=== PATIENT | female | born 1955 | race African-American/Black ===

== ENCOUNTER 2018-05-15 19:53 | Emergency (ER) | payer OTHER ==
[~2018-05-15] VITALS: Ht 160 cm; Wt 77.1 kg
[~2018-05-15 19:53] MED LIST: ACETAMINOPHEN-120 ML PO; AMOXICILLIN 50500 M1 PO; BACTRIM DS TAB1 EACH PO; CIPROFLOXACIN500 M1 PO; DIOVAN HCT 80-1 EACH; DIOVAN HCT 80-1 EACH PO; DOXYCYCLINE 10100 MG PO; FLEXERIL PO; FLONASE 0.05%50 MCG NASAL; HYDROCODON-ACE1 EAC7 PO; HYDROCODONE-AP1 EAC6 PO; IBUPROFEN 800800 M1 PO; NORCO 5-325 TA1 EACH PO; OTIC CARE OTIC14 ML OT; PREDNISONE 20 M20 M1 PO
[2018-05-15] MEDS ORDERED: HYDROCHLOROTH12.5 M1 PO (20:05)
[2018-05-15] MEDS ORDERED: COZAAR 50 MG TA50 M2 PO (20:05)
[2018-05-15] MEDS ORDERED: DOXYCYCLINE 10100 MG PO (20:40)
[2018-05-15 20:48] VITALS: BP 121/75
== END 2018-05-15 20:49 | disposition home or self-care (01) ==
LOC: M.ERS 19:53
DX: S70.362A Insect bite (nonvenomous), left thigh, initial encounter (principal); I10 Essential (primary) hypertension; Z88.8 Allergy status to other drugs, medicaments and biological substances; W57.XXXA Bitten or stung by nonvenomous insect and other nonvenomous arthropods, initial encounter; Y93.89 Activity, other specified; Y92.89 Other specified places as the place of occurrence of the external cause; Y99.8 Other external cause status

== ENCOUNTER 2021-05-07 18:54 | Emergency (ER) | payer MEDICARE ==
[~2021-05-07] VITALS: Ht 160 cm; Wt 74.8 kg
[~2021-05-07 18:54] MED LIST changes: +COZAAR 50 MG TA50 M2 PO; +HYDROCHLOROTH12.5 M1 PO
[2021-05-07 19:11] VITALS: BP 150/59
[2021-05-07] MEDS ORDERED: AMOXICILLIN875 MG PO (19:54)
== END 2021-05-07 20:18 | disposition home or self-care (01) ==
LOC: M.ERS 18:54
DX: J32.9 Chronic sinusitis, unspecified (principal); I10 Essential (primary) hypertension; K58.9 Irritable bowel syndrome, unspecified; Z88.8 Allergy status to other drugs, medicaments and biological substances; Z98.890 Other specified postprocedural states

== ENCOUNTER 2021-07-07 12:17 | Inpatient (IN) | payer MEDICARE ==
[~2021-07-07] VITALS: Ht 160 cm; Wt 77.8 kg
[~2021-07-07 12:17] MED LIST changes: +AMOXICILLIN875 MG PO; +COZAAR 50 MG TA50 M1 PO; -COZAAR 50 MG TA50 M2 PO
[2021-07-07 12:27] VITALS: BP 135/74
[2021-07-07 13:06] LABS: ABSOLUTE LYMPHOCYTES 0.9 thou/uL (0.8-5.3); ABSOLUTE MONOCYTES 0.5 thou/uL (0.0-1.2); BASOPHILS 0.1 %; HEMATOCRIT 41.4 % (37.0-47.0); HEMOGLOBIN 13.6 gm/dL (12.0-15.0); LYMPHOCYTES 8.8 %; MCH 28.3 pg (26.0-34.0); MCHC 32.9 g/dL (28.0-37.0); MCV 86.1 fL (80.0-100.0); MONOCYTES 4.9 %; MPV 7.4 fl. (7.2-11.1); NUCLEATED RBCS 0 /100WBC; PLATELET COUNT* 227 thou/uL (150-400); POLYS 86.2 %; RBC 4.81 mil/uL (4.20-5.00); RDW-CV 13.4 % (10.5-14.5); WBC 10.4 thou/uL (4.0-11.0)
[2021-07-07 13:16] LABS: CALCIUM 10.1 mg/dL (8.5-10.1); CREATININE 1.2 mg/dL (0.6-1.3); POTASSIUM 3.9 mmol/L (3.5-5.1)
[2021-07-07 13:27] LABS: ALBUMIN 3.2 g/dL (3.4-5.0); TOTAL BILIRUBIN 0.5 mg/dL (<0.1-1.0); TOTAL PROTEIN 8.3 g/dL (6.4-8.2)
--- NOTE | 2021-07-07 13:41 | EKG ---
[place] [address] ELECTROCARDIOGRAM REPORT Name: CHAD MAGAÑALIND Belia Room: [facility]#: [id number] Admission: 07/07/21 Attend Phys: Discharge: Date of : 55 Date of Service: 07/07/21 1311 Report #: [id number] THIS REPORT FOR: //name// [facility] ED Test Date: 2021-07-07 Test Time: 13:11:09 Pat Name: ROSSY MAGAÑA Department: Room: Gender: F [place]: DSL : 1955 Requested By: Angela David Order Number: [id number] MD: Juan J Ignacio Measurements Intervals [place] Rate: 87 P: 42 RI: 145 QRS: -8 QRSD: 92 T: 10 QT: 355 QTc: 427 Interpretive Statements Sinus rhythm Probable left atrial enlargement Abnormal R-wave progression, early transition Nonspecific T abnormalities, inferior leads Compared to ECG 11/14/2014 11:50:54 T-wave abnormality now present ST (T wave) deviation now present Electronically Signed On 07-07-2021 13:41:32 CDT by Juan J Ignacio [email or web address] <ELECTRONICALLY SIGNED> By: Juan J Ignacio MD, [facility] 07/07/21 1341 1311 1311 Juan J Ignacio MD, [facility] /EPI
[2021-07-07 18:02] VITALS: BP 125/74
[2021-07-07 18:18] VITALS: BP 125/74
[2021-07-07 20:39] VITALS: BP 133/71
[2021-07-08 00:36] VITALS: BP 131/71
[2021-07-08 04:40] VITALS: BP 148/75
[2021-07-08 08:00] VITALS: BP 149/69
[2021-07-08 12:00] VITALS: BP 124/76
[2021-07-08 22:30] VITALS: BP 148/74
[2021-07-09 00:10] VITALS: BP 132/69
[2021-07-09 04:07] LABS: CALCIUM 10.5 mg/dL (8.5-10.1)
[2021-07-09 04:09] LABS: HEMATOCRIT 38.7 % (37.0-47.0); HEMOGLOBIN 12.7 gm/dL (12.0-15.0); MCHC 32.9 g/dL (28.0-37.0); MCV 85.1 fL (80.0-100.0); MPV 7.5 fl. (7.2-11.1); RBC 4.55 mil/uL (4.20-5.00); RDW-CV 13.5 % (10.5-14.5); WBC 13.6 thou/uL (4.0-11.0)
[2021-07-09 04:25] VITALS: BP 140/73
[2021-07-09 12:00] VITALS: BP 149/78
[2021-07-09 16:00] VITALS: BP 154/78
[2021-07-09 22:15] VITALS: BP 140/70
[2021-07-10 00:15] VITALS: BP 135/73
[2021-07-10 04:35] VITALS: BP 135/73; BP 152/78
[2021-07-10 05:35] LABS: INFLUENZA A ANTIGEN Negative (Negative); INFLUENZA B ANTIGEN Negative (Negative)
[2021-07-10 06:35] LABS: BE 3.9 mmol/L (-2 to +3); PCO2 42.2 mmHg (35.0-45.0); PO2 68.9 mmHg (75.0-100.0); pH 7.446 (7.340-7.450)
[2021-07-10 07:30] VITALS: BP 150/74
[2021-07-10 12:00] VITALS: BP 135/67
[2021-07-10 16:14] VITALS: BP 149/74
[2021-07-10 20:00] VITALS: BP 144/75
[2021-07-11] VITALS (7 sets, daily range): BP systolic 145–166; BP diastolic 67–84
[2021-07-11 09:08] LABS: CALCIUM 9.7 mg/dL (8.5-10.1); CREATININE 0.9 mg/dL (0.6-1.3); POTASSIUM 3.7 mmol/L (3.5-5.1)
[2021-07-12] VITALS (16 sets, daily range): BP systolic 83–156; BP diastolic 46–87
[2021-07-12 05:28] LABS: HEMATOCRIT 39.2 % (37.0-47.0); HEMOGLOBIN 12.8 gm/dL (12.0-15.0); MCH 27.9 pg (26.0-34.0); MCHC 32.7 g/dL (28.0-37.0); MCV 85.2 fL (80.0-100.0); NUCLEATED RBCS 0 /100WBC; PLATELET COUNT* 349 thou/uL (150-400); RDW-CV 13.3 % (10.5-14.5); WBC 13.6 thou/uL (4.0-11.0)
[2021-07-12 05:58] LABS: ALBUMIN 2.5 g/dL (3.4-5.0); CALCIUM 9.5 mg/dL (8.5-10.1); MAGNESIUM 2.2 mg/dL (1.8-2.4); POTASSIUM 3.8 mmol/L (3.5-5.1); TOTAL BILIRUBIN 0.5 mg/dL (<0.1-1.0); TOTAL PROTEIN 6.6 g/dL (6.4-8.2)
[2021-07-12 06:14] LABS: ABSOLUTE LYMPHOCYTES 1.1 thou/uL (0.8-5.3); ABSOLUTE MONOCYTES 0.5 thou/uL (0.0-1.2); ANISOCYTOSIS 1+; PLATELET ESTIMATE ADEQUATE; POIKILOCYTOSIS 1+
[2021-07-13] VITALS (51 sets, daily range): BP systolic 82–178; BP diastolic 44–99
[2021-07-13 04:43] LABS: ABSOLUTE LYMPHOCYTES 0.5 thou/uL (0.8-5.3); ABSOLUTE MONOCYTES 0.4 thou/uL (0.0-1.2); ABSOLUTE NEUTROPHILS 16.1 thou/uL (1.6-8.1); BASOPHILS 0.1 %; HEMATOCRIT 38.5 % (37.0-47.0); HEMOGLOBIN 12.6 gm/dL (12.0-15.0); LYMPHOCYTES 3.1 %; MCH 27.9 pg (26.0-34.0); MCHC 32.7 g/dL (28.0-37.0); MCV 85.3 fL (80.0-100.0); MONOCYTES 2.4 %; MPV 7.8 fl. (7.2-11.1); NUCLEATED RBCS 0 /100WBC; PLATELET COUNT* 362 thou/uL (150-400); POLYS 94.4 %; RBC 4.52 mil/uL (4.20-5.00); RDW-CV 13.2 % (10.5-14.5)
[2021-07-13 05:48] LABS: ALBUMIN 2.2 g/dL (3.4-5.0); CREATININE 1.2 mg/dL (0.6-1.3); MAGNESIUM 2.4 mg/dL (1.8-2.4); POTASSIUM 4.3 mmol/L (3.5-5.1); TOTAL BILIRUBIN 0.4 mg/dL (<0.1-1.0); TOTAL PROTEIN 6.7 g/dL (6.4-8.2)
[2021-07-13 09:08] LABS: BE 4.4 mmol/L (-2 to +3); PCO2 45.3 mmHg (35.0-45.0); pH 7.431 (7.340-7.450)
[2021-07-13 09:37] LABS: PO2 48.5 mmHg (75.0-100.0)
[2021-07-13 12:45] LABS: PCO2 46.5 mmHg (35.0-45.0); pH 7.391 (7.340-7.450)
[2021-07-13 12:46] LABS: PO2 55.1 mmHg (75.0-100.0)
[2021-07-13 17:52] LABS: CALCIUM 9.9 mg/dL (8.5-10.1); CREATININE 1.2 mg/dL (0.6-1.3); MAGNESIUM 2.1 mg/dL (1.8-2.4); POTASSIUM 4.3 mmol/L (3.5-5.1)
[2021-07-13 17:54] LABS: BE 4.8 mmol/L (-2 to +3); PCO2 38.3 mmHg (35.0-45.0); pH 7.487 (7.340-7.450)
[2021-07-13 17:58] LABS: PO2 143.2 mmHg (75.0-100.0)
[2021-07-14] VITALS (74 sets, daily range): BP systolic 79–162; BP diastolic 43–74
[2021-07-14 04:53] LABS: ABSOLUTE LYMPHOCYTES 0.4 thou/uL (0.8-5.3); ABSOLUTE MONOCYTES 0.7 thou/uL (0.0-1.2); ABSOLUTE NEUTROPHILS 20.8 thou/uL (1.6-8.1); BASOPHILS 0.2 %; HEMOGLOBIN 12.5 gm/dL (12.0-15.0); MCH 27.8 pg (26.0-34.0); MCHC 32.8 g/dL (28.0-37.0); MCV 84.7 fL (80.0-100.0); MPV 7.6 fl. (7.2-11.1); NUCLEATED RBCS 0 /100WBC; PLATELET COUNT* 412 thou/uL (150-400); POLYS 94.8 %; RBC 4.49 mil/uL (4.20-5.00); RDW-CV 13.4 % (10.5-14.5); WBC 21.9 thou/uL (4.0-11.0)
[2021-07-14 05:05] LABS: CALCIUM 9.7 mg/dL (8.5-10.1); CREATININE 1.3 mg/dL (0.6-1.3); MAGNESIUM 2.2 mg/dL (1.8-2.4); POTASSIUM 3.6 mmol/L (3.5-5.1); TOTAL BILIRUBIN 0.5 mg/dL (<0.1-1.0); TOTAL PROTEIN 6.7 g/dL (6.4-8.2)
[2021-07-14 08:59] LABS: BE 1.1 mmol/L (-2 to +3); PCO2 45.2 mmHg (35.0-45.0); PO2 82.6 mmHg (75.0-100.0); pH 7.386 (7.340-7.450)
--- NOTE | 2021-07-14 14:59 | 2DMMODE ---
[place] [address] 2 D/M-MODE ECHOCARDIOGRAM Name: ROSSY MAGAÑA Room: [address] IN [facility]#: [id number] Admission: 07/07/21 Attend Phys: Loulou Mcmillan, Discharge: Date of : 55 Date of Service: 07/14/21 1459 Report #: [id number] THIS REPORT FOR: cc: Diego Mckinley MD, Anthony MD Biggs, F. Douglas MD [facility] ~ APPROVED REPORT Study performed: 07/14/2021 13:19:58 EXAM: Limited 2D Echocardiogram Patient Location: In-Patient Room #: 001 Status: routine BSA: 1.70 HR: 95 bpm BP: 112/56 mmHg Rhythm: NSR Other Information Technically limited study due to SUBCOSTAL VIEWS ONLY OBTAINABLE VIEW,, patient on ventilator, inability to position patient. Indications Septic Shock Left Ventricle The left ventricle is normal size. Regional wall motion is not well visualized but grossly normal. There is normal left ventricular wall thickness. The left ventricular systolic function is normal. The left ventricular ejection fraction is within the normal range. LVEF is 55-60%. This study is not technically sufficient to allow evaluation of the LV diastolic function. Right Ventricle The right ventricle is normal size. The right ventricular systolic function is normal. Atria The left atrium size is normal. Aortic Valve The aortic valve is normal in structure. [address] [address] 2 D/M-MODE ECHOCARDIOGRAM Name: ROSSY MAGAÑA Room: [address] IN ..#: [id number] Admission: 07/07/21 Attend Phys: Loulou Mcmillan, Discharge: Date of : 55 Date of Service: 07/14/21 1459 Report #: [id number] Mitral Valve The mitral valve is normal in structure. Tricuspid Valve The tricuspid valve is normal in structure. Unable to assess PA pressure. Trace tricuspid regurgitation. Great Vessels The aortic root is normal in size. IVC is normal in size. Pericardium There is no pericardial effusion. <Conclusion> LVEF is 55-60%. This study is not technically sufficient to allow evaluation of the LV diastolic function. There is normal left ventricular wall thickness. The left ventricle is normal size. Regional wall motion is not well visualized but grossly normal. This study is not technically sufficient to allow evaluation of the LV diastolic function. The right ventricle is normal size. The right ventricular systolic function is normal. The left atrium size is normal. The aortic valve is normal in structure. The mitral valve is normal in structure. The tricuspid valve is normal in structure. Unable to assess PA pressure. Trace tricuspid regurgitation. <ELECTRONICALLY SIGNED> By: Jaja Nova MD, [facility] 07/14/21 1459 1459 1459 Jaja Nova MD, [facility] /INF
[2021-07-14 16:28] LABS: URINE BILIRUBIN NEGATIVE (Negative); URINE BLOOD NEGATIVE (Negative); URINE CLARITY CLEAR; URINE COLOR YELLOW; URINE GLUCOSE-RANDOM NEGATIVE (Negative); URINE KETONES NEGATIVE (Negative); URINE LEUKOCYTES-REFLEX NEGATIVE (Negative); URINE NITRITE-REFLEX NEGATIVE (Negative); URINE PROTEIN TRACE (Negative); URINE SPECIFIC GRAVITY 1.025 (1.005-1.030); URINE UROBILINOGEN 0.2 E.U./dl (0.2-1.0)
[2021-07-14 19:57] LABS: PCO2 45.1 mmHg (35.0-45.0); PO2 70.1 mmHg (75.0-100.0); pH 7.356 (7.340-7.450)
[2021-07-15] VITALS (73 sets, daily range): BP systolic 68–263; BP diastolic 31–91
[2021-07-15 05:16] LABS: HEMATOCRIT 34.3 % (37.0-47.0); HEMOGLOBIN 11.2 gm/dL (12.0-15.0); MCH 27.9 pg (26.0-34.0); MCHC 32.7 g/dL (28.0-37.0); MCV 85.3 fL (80.0-100.0); MPV 7.1 fl. (7.2-11.1); NUCLEATED RBCS 0 /100WBC; PLATELET COUNT* 313 thou/uL (150-400); RBC 4.02 mil/uL (4.20-5.00); RDW-CV 13.6 % (10.5-14.5); WBC 20.4 thou/uL (4.0-11.0)
[2021-07-15 05:34] LABS: ALBUMIN 3.1 g/dL (3.4-5.0); CALCIUM 9.2 mg/dL (8.5-10.1); CREATININE 1.1 mg/dL (0.6-1.3); MAGNESIUM 2.3 mg/dL (1.8-2.4); POTASSIUM 3.8 mmol/L (3.5-5.1); TOTAL BILIRUBIN 0.4 mg/dL (<0.1-1.0); TOTAL PROTEIN 6.2 g/dL (6.4-8.2)
[2021-07-15 06:55] LABS: ABSOLUTE LYMPHOCYTES 0.6 thou/uL (0.8-5.3); ABSOLUTE MONOCYTES 0.4 thou/uL (0.0-1.2); ABSOLUTE NEUTROPHILS 19.4 thou/uL (1.6-8.1); METAMYELOCYTES 1 %; PLATELET ESTIMATE ADEQUATE
[2021-07-15 09:35] LABS: BE 0 mmol/L (-2 to +3); pH 7.337 (7.340-7.450)
[2021-07-15 09:41] LABS: PCO2 50.5 mmHg (35.0-45.0); PO2 52.1 mmHg (75.0-100.0)
[2021-07-15 11:34] LABS: BE 3.4 mmol/L (-2 to +3); PCO2 45.5 mmHg (35.0-45.0); PO2 89.6 mmHg (75.0-100.0); pH 7.415 (7.340-7.450)
[2021-07-15 17:20] LABS: BE 2.3 mmol/L (-2 to +3); pH 7.362 (7.340-7.450)
[2021-07-15 17:24] LABS: PCO2 51.4 mmHg (35.0-45.0); PO2 131.2 mmHg (75.0-100.0)
[2021-07-15 17:53] LABS: CALCIUM 9.1 mg/dL (8.5-10.1); CREATININE 1.3 mg/dL (0.6-1.3); MAGNESIUM 2.1 mg/dL (1.8-2.4); POTASSIUM 3.8 mmol/L (3.5-5.1)
[2021-07-16] VITALS (83 sets, daily range): BP systolic 85–214; BP diastolic 45–81
[2021-07-16 12:28] LABS: BE 1.2 mmol/L (-2 to +3); PO2 74.4 mmHg (75.0-100.0)
[2021-07-16 12:37] LABS: ABSOLUTE LYMPHOCYTES 0.5 thou/uL (0.8-5.3); ABSOLUTE MONOCYTES 0.6 thou/uL (0.0-1.2); ABSOLUTE NEUTROPHILS 24.8 thou/uL (1.6-8.1); BASOPHILS 0.1 %; HEMATOCRIT 34.4 % (37.0-47.0); LYMPHOCYTES 1.8 %; MCH 27.7 pg (26.0-34.0); MCHC 31.8 g/dL (28.0-37.0); MCV 86.9 fL (80.0-100.0); MONOCYTES 2.3 %; MPV 7.4 fl. (7.2-11.1); NUCLEATED RBCS 0 /100WBC; POLYS 95.8 %; RBC 3.96 mil/uL (4.20-5.00); RDW-CV 13.3 % (10.5-14.5); WBC 25.9 thou/uL (4.0-11.0)
[2021-07-16 12:37] LABS: PCO2 61.6 mmHg (35.0-45.0)
[2021-07-16 12:39] LABS: PLATELET COUNT* 207 thou/uL (150-400)
[2021-07-16 12:59] LABS: ALBUMIN 3.1 g/dL (3.4-5.0); CALCIUM 9.5 mg/dL (8.5-10.1); CREATININE 1.1 mg/dL (0.6-1.3); POTASSIUM 4.1 mmol/L (3.5-5.1); TOTAL BILIRUBIN 0.2 mg/dL (<0.1-1.0); TOTAL PROTEIN 5.5 g/dL (6.4-8.2)
[2021-07-16 18:37] LABS: BE 4.8 mmol/L (-2 to +3); PO2 89.5 mmHg (75.0-100.0); pH 7.379 (7.340-7.450)
[2021-07-17] VITALS (76 sets, daily range): BP systolic 100–185; BP diastolic 32–51
[2021-07-17 06:51] LABS: ABSOLUTE LYMPHOCYTES 0.4 thou/uL (0.8-5.3); ABSOLUTE MONOCYTES 0.8 thou/uL (0.0-1.2); ABSOLUTE NEUTROPHILS 22.6 thou/uL (1.6-8.1); BASOPHILS 0.1 %; HEMATOCRIT 31.8 % (37.0-47.0); HEMOGLOBIN 10.3 gm/dL (12.0-15.0); LYMPHOCYTES 1.8 %; MCH 27.8 pg (26.0-34.0); MCHC 32.5 g/dL (28.0-37.0); MCV 85.8 fL (80.0-100.0); MONOCYTES 3.3 %; MPV 7.4 fl. (7.2-11.1); NUCLEATED RBCS 0 /100WBC; PLATELET COUNT* 150 thou/uL (150-400); POLYS 94.8 %; RBC 3.71 mil/uL (4.20-5.00); RDW-CV 13.7 % (10.5-14.5); WBC 23.9 thou/uL (4.0-11.0)
[2021-07-17 07:24] LABS: ALBUMIN 2.7 g/dL (3.4-5.0); CALCIUM 9.7 mg/dL (8.5-10.1); CREATININE 1.1 mg/dL (0.6-1.3); MAGNESIUM 2.5 mg/dL (1.8-2.4); POTASSIUM 4.1 mmol/L (3.5-5.1); TOTAL BILIRUBIN 0.3 mg/dL (<0.1-1.0); TOTAL PROTEIN 4.9 g/dL (6.4-8.2)
[2021-07-17 09:11] LABS: BE 3.9 mmol/L (-2 to +3); PO2 78.1 mmHg (75.0-100.0); pH 7.351 (7.340-7.450)
[2021-07-17 09:19] LABS: PCO2 56.5 mmHg (35.0-45.0)
[2021-07-17 16:33] LABS: CALCIUM 9.5 mg/dL (8.5-10.1); CREATININE 1.3 mg/dL (0.6-1.3); POTASSIUM 4.3 mmol/L (3.5-5.1)
[2021-07-18] VITALS (24 sets, daily range): BP systolic 100–185; BP diastolic 39–68
[2021-07-18 05:38] LABS: HEMOGLOBIN 10.1 gm/dL (12.0-15.0); MCH 28.2 pg (26.0-34.0); MCHC 32.7 g/dL (28.0-37.0); MCV 86.3 fL (80.0-100.0); MPV 8.3 fl. (7.2-11.1); NUCLEATED RBCS 0 /100WBC; PLATELET COUNT* 125 thou/uL (150-400); RDW-CV 13.7 % (10.5-14.5); WBC 22.1 thou/uL (4.0-11.0)
[2021-07-18 05:50] LABS: CALCIUM 10.2 mg/dL (8.5-10.1); CREATININE 1.2 mg/dL (0.6-1.3); MAGNESIUM 2.6 mg/dL (1.8-2.4); POTASSIUM 4.7 mmol/L (3.5-5.1); TOTAL BILIRUBIN 0.3 mg/dL (<0.1-1.0); TOTAL PROTEIN 4.9 g/dL (6.4-8.2)
[2021-07-18 06:20] LABS: ABSOLUTE LYMPHOCYTES 1.3 thou/uL (0.8-5.3); ABSOLUTE MONOCYTES 0.4 thou/uL (0.0-1.2); ABSOLUTE NEUTROPHILS 20.3 thou/uL (1.6-8.1); ANISOCYTOSIS 1+; PLATELET ESTIMATE DECREASED; POIKILOCYTOSIS 1+
[2021-07-18 08:58] LABS: BE 3.2 mmol/L (-2 to +3); PCO2 44.5 mmHg (35.0-45.0); PO2 107.2 mmHg (75.0-100.0); pH 7.419 (7.340-7.450)
[2021-07-18 20:17] LABS: BE 2.6 mmol/L (-2 to +3); PO2 92.3 mmHg (75.0-100.0)
[2021-07-18 20:31] LABS: PCO2 73.9 mmHg (35.0-45.0); pH 7.249 (7.340-7.450)
[2021-07-19] VITALS (47 sets, daily range): BP systolic 89–163; BP diastolic 42–62
[2021-07-19 03:59] LABS: ABSOLUTE BASOPHILS 0.1 thou/uL (0.0-0.2); ABSOLUTE LYMPHOCYTES 0.4 thou/uL (0.8-5.3); ABSOLUTE MONOCYTES 0.7 thou/uL (0.0-1.2); ABSOLUTE NEUTROPHILS 26.2 thou/uL (1.6-8.1); BASOPHILS 0.2 %; HEMATOCRIT 31.9 % (37.0-47.0); HEMOGLOBIN 10.3 gm/dL (12.0-15.0); LYMPHOCYTES 1.5 %; MCH 28.1 pg (26.0-34.0); MCHC 32.3 g/dL (28.0-37.0); MCV 86.9 fL (80.0-100.0); MONOCYTES 2.7 %; MPV 8.1 fl. (7.2-11.1); NUCLEATED RBCS 0 /100WBC; PLATELET COUNT* 99 thou/uL (150-400); POLYS 95.6 %; RBC 3.68 mil/uL (4.20-5.00); RDW-CV 14.1 % (10.5-14.5); WBC 27.4 thou/uL (4.0-11.0)
[2021-07-19 04:38] LABS: ALBUMIN 2.8 g/dL (3.4-5.0); CALCIUM 9.9 mg/dL (8.5-10.1); CREATININE 1.2 mg/dL (0.6-1.3); MAGNESIUM 2.8 mg/dL (1.8-2.4); POTASSIUM 4.7 mmol/L (3.5-5.1); TOTAL BILIRUBIN 0.2 mg/dL (<0.1-1.0); TOTAL PROTEIN 5.1 g/dL (6.4-8.2)
[2021-07-19 07:38] LABS: BE 2.7 mmol/L (-2 to +3); PO2 110.6 mmHg (75.0-100.0); pH 7.343 (7.340-7.450)
[2021-07-19 07:39] LABS: PCO2 55.3 mmHg (35.0-45.0)
[2021-07-19 15:04] LABS: BE 4.7 mmol/L (-2 to +3); PCO2 48.5 mmHg (35.0-45.0); PO2 73.1 mmHg (75.0-100.0)
[2021-07-19 15:30] LABS: ABSOLUTE BASOPHILS 0.1 thou/uL (0.0-0.2); ABSOLUTE LYMPHOCYTES 0.3 thou/uL (0.8-5.3); ABSOLUTE MONOCYTES 0.5 thou/uL (0.0-1.2); ABSOLUTE NEUTROPHILS 18.2 thou/uL (1.6-8.1); BASOPHILS 0.3 %; HEMATOCRIT 28.7 % (37.0-47.0); HEMOGLOBIN 9.3 gm/dL (12.0-15.0); LYMPHOCYTES 1.7 %; MCH 27.9 pg (26.0-34.0); MCHC 32.4 g/dL (28.0-37.0); MCV 86.2 fL (80.0-100.0); MONOCYTES 2.6 %; NUCLEATED RBCS 0 /100WBC; PLATELET COUNT* 83 thou/uL (150-400); POLYS 95.4 %; RBC 3.33 mil/uL (4.20-5.00); RDW-CV 13.7 % (10.5-14.5); WBC 19.1 thou/uL (4.0-11.0)
[2021-07-19 15:43] LABS: CALCIUM 9.8 mg/dL (8.5-10.1); CREATININE 1.1 mg/dL (0.6-1.3); MAGNESIUM 2.8 mg/dL (1.8-2.4); POTASSIUM 5.2 mmol/L (3.5-5.1)
[2021-07-19 15:51] LABS: APTT 23.8 Seconds (25.0-31.3); INR 1.2; PROTIME 13.1 Seconds (9.20-11.50)
[2021-07-20] VITALS (48 sets, daily range): BP systolic 101–198; BP diastolic 45–62
[2021-07-20 03:24] LABS: ABSOLUTE LYMPHOCYTES 0.3 thou/uL (0.8-5.3); ABSOLUTE MONOCYTES 0.6 thou/uL (0.0-1.2); ABSOLUTE NEUTROPHILS 22.7 thou/uL (1.6-8.1); BASOPHILS 0.1 %; HEMATOCRIT 29.3 % (37.0-47.0); HEMOGLOBIN 9.4 gm/dL (12.0-15.0); LYMPHOCYTES 1.2 %; MCH 27.9 pg (26.0-34.0); MCHC 32.1 g/dL (28.0-37.0); MCV 86.9 fL (80.0-100.0); MONOCYTES 2.5 %; MPV 8.4 fl. (7.2-11.1); NUCLEATED RBCS 0 /100WBC; PLATELET COUNT* 78 thou/uL (150-400); POLYS 96.2 %; RBC 3.37 mil/uL (4.20-5.00); RDW-CV 14.1 % (10.5-14.5); WBC 23.6 thou/uL (4.0-11.0)
[2021-07-20 03:37] LABS: ALBUMIN 2.5 g/dL (3.4-5.0); CALCIUM 9.9 mg/dL (8.5-10.1); MAGNESIUM 2.8 mg/dL (1.8-2.4); POTASSIUM 5.2 mmol/L (3.5-5.1); TOTAL BILIRUBIN 0.3 mg/dL (<0.1-1.0); TOTAL PROTEIN 4.6 g/dL (6.4-8.2)
[2021-07-20 08:55] LABS: BE 3.1 mmol/L (-2 to +3); PO2 75.4 mmHg (75.0-100.0); pH 7.322 (7.340-7.450)
[2021-07-20 09:01] LABS: PCO2 59.9 mmHg (35.0-45.0)
[2021-07-20 17:29] LABS: BE 6.7 mmol/L (-2 to +3); PO2 94.6 mmHg (75.0-100.0); pH 7.358 (7.340-7.450)
[2021-07-20 17:33] LABS: PCO2 60.9 mmHg (35.0-45.0)
[2021-07-20 18:33] LABS: CREATININE 1.2 mg/dL (0.6-1.3); MAGNESIUM 2.6 mg/dL (1.8-2.4); POTASSIUM 4.9 mmol/L (3.5-5.1)
[2021-07-21] VITALS (45 sets, daily range): BP systolic 115–180; BP diastolic 42–64
[2021-07-21 06:10] LABS: ABSOLUTE LYMPHOCYTES 0.3 thou/uL (0.8-5.3); ABSOLUTE MONOCYTES 0.6 thou/uL (0.0-1.2); ABSOLUTE NEUTROPHILS 23.5 thou/uL (1.6-8.1); BASOPHILS 0.1 %; HEMATOCRIT 28.9 % (37.0-47.0); HEMOGLOBIN 9.3 gm/dL (12.0-15.0); LYMPHOCYTES 1.4 %; MCH 28.1 pg (26.0-34.0); MCHC 32.1 g/dL (28.0-37.0); MCV 87.3 fL (80.0-100.0); MONOCYTES 2.5 %; NUCLEATED RBCS 0 /100WBC; PLATELET COUNT* 73 thou/uL (150-400); RBC 3.31 mil/uL (4.20-5.00); RDW-CV 14.2 % (10.5-14.5); WBC 24.5 thou/uL (4.0-11.0)
[2021-07-21 06:29] LABS: ALBUMIN 3.1 g/dL (3.4-5.0); CALCIUM 10.1 mg/dL (8.5-10.1); CREATININE 0.9 mg/dL (0.6-1.3); MAGNESIUM 2.7 mg/dL (1.8-2.4); POTASSIUM 5.1 mmol/L (3.5-5.1); TOTAL BILIRUBIN 0.4 mg/dL (<0.1-1.0); TOTAL PROTEIN 5.2 g/dL (6.4-8.2)
[2021-07-21 08:43] LABS: BE 4.1 mmol/L (-2 to +3); PO2 65.7 mmHg (75.0-100.0)
[2021-07-21 08:45] LABS: PCO2 67.2 mmHg (35.0-45.0); pH 7.294 (7.340-7.450)
[2021-07-21 10:38] LABS: BE 4.2 mmol/L (-2 to +3); PO2 68.8 mmHg (75.0-100.0); pH 7.383 (7.340-7.450)
[2021-07-21 10:40] LABS: PCO2 51.7 mmHg (35.0-45.0)
[2021-07-21 15:17] LABS: PCO2 48.8 mmHg (35.0-45.0); PO2 79.2 mmHg (75.0-100.0); pH 7.411 (7.340-7.450)
--- NOTE | 2021-07-21 15:51 | 2DMMODE ---
[place] [address] 2 D/M-MODE ECHOCARDIOGRAM Name: ROSSY MAGAÑA Belia Room: [address] IN [facility]#: [id number] Admission: 07/07/21 Attend Phys: Loulou Mcmillan, Discharge: Date of : 55 Date of Service: 07/21/21 1550 Report #: [id number] THIS REPORT FOR: cc: Diego Mckinley MD, Anthony MD [place], Michael J. MD [facility] ~ APPROVED REPORT Study performed: 07/21/2021 14:27:55 EXAM: Limited 2D Echocardiogram Patient Location: In-Patient Room #: 001 Status: routine BSA: 1.76 HR: 75 bpm BP: 144/50 mmHg Rhythm: NSR Other Information Study Quality: Good Indications Dyspnea COVID, REASSESS PA SYSTOLIC Tricuspid Valve RAP Estimate: 5.00 mmHg TR Peak Gr.: 43.24 mmHg RVSP: 48.00 mmHg PA Pressure: 48.00 mmHg Left Ventricle The left ventricle is normal size. There is normal LV segmental wall motion. There is normal left ventricular wall thickness. The left ventricular systolic function is normal. LVEF is 65-70%. This study is not technically sufficient to allow evaluation of the LV diastolic function. Right Ventricle Right ventricle is moderately dilated. The right ventricular systolic function is normal. Atria The left atrium size is normal. Right atrium [place] [address] 2 D/M-MODE ECHOCARDIOGRAM Name: ROSSY MAGAÑA Room: [address] IN [facility].#: [id number] Admission: 07/07/21 Attend Phys: Loulou Mcmillan, Discharge: Date of : 55 Date of Service: 07/21/21 1550 Report #: [id number] Aortic Valve The aortic valve is normal in structure. No aortic regurgitation is present. Mitral Valve The mitral valve is normal in structure. There is no mitral valve regurgitation noted. Tricuspid Valve The tricuspid valve is normal in structure. Mild tricuspid regurgitation. Moderate pulmonary hypertension. The RVSP is 55-60 mmHg. Pulmonic Valve The pulmonary valve is normal in structure. Trace pulmonic regurgitation. Great Vessels The aortic root is normal in size. IVC is dilated and collapses <50% with inspiration. Pericardium There is no pericardial effusion. <Conclusion> The left ventricle is normal size. There is normal left ventricular wall thickness. The left ventricular systolic function is normal. LVEF is 65-70%. Right ventricle is moderately dilated. Right atrium is moderately dilated. Mild tricuspid regurgitation. Moderate pulmonary hypertension. The RVSP is 55-60 mmHg. IVC is dilated and collapses <50% with inspiration. <ELECTRONICALLY SIGNED> By: Ferny Dinero MD, FACC 07/21/21 1550 1550 1550 Ferny Dinero MD, FAC /INF
[2021-07-22] VITALS (45 sets, daily range): BP systolic 91–206; BP diastolic 40–69
[2021-07-22 05:38] LABS: HEMOGLOBIN 8.8 gm/dL (12.0-15.0); MCH 28.2 pg (26.0-34.0); MCHC 32.4 g/dL (28.0-37.0); NUCLEATED RBCS 0 /100WBC; PLATELET COUNT* 73 thou/uL (150-400); RBC 3.11 mil/uL (4.20-5.00); RDW-CV 13.8 % (10.5-14.5); WBC 22.8 thou/uL (4.0-11.0)
[2021-07-22 05:54] LABS: CALCIUM 10.2 mg/dL (8.5-10.1); CREATININE 0.8 mg/dL (0.6-1.3); MAGNESIUM 2.4 mg/dL (1.8-2.4); POTASSIUM 5.3 mmol/L (3.5-5.1); TOTAL BILIRUBIN 0.4 mg/dL (<0.1-1.0)
[2021-07-22 06:09] LABS: PHOSPHORUS* 2.6 mg/dL (2.5-4.9)
[2021-07-22 06:17] LABS: ABSOLUTE LYMPHOCYTES 0.5 thou/uL (0.8-5.3); ABSOLUTE MONOCYTES 0.2 thou/uL (0.0-1.2); ABSOLUTE NEUTROPHILS 22.1 thou/uL (1.6-8.1); PLATELET ESTIMATE DECREASED
[2021-07-22 06:18] LABS: ANISOCYTOSIS 1+; POIKILOCYTOSIS 1+
[2021-07-22 07:41] LABS: BE 7.8 mmol/L (-2 to +3); PCO2 48.3 mmHg (35.0-45.0); PO2 62.7 mmHg (75.0-100.0)
[2021-07-22 14:33] LABS: BE 6.8 mmol/L (-2 to +3); PO2 68.5 mmHg (75.0-100.0)
[2021-07-22 14:38] LABS: PCO2 83.3 mmHg (35.0-45.0); pH 7.256 (7.340-7.450)
[2021-07-22 15:50] LABS: ANION GAP < 0 mmol/L (7-16); BUN 53 mg/dL (7-18); CALCIUM 9.8 mg/dL (8.5-10.1); CHLORIDE 104 mmol/L (98-107); CO2 36 mmol/L (21-32); CREATININE 0.8 mg/dL (0.6-1.3); GLUCOSE 155 mg/dL (70-99); MAGNESIUM 2.4 mg/dL (1.8-2.4); POTASSIUM 5.5 mmol/L (3.5-5.1); SODIUM 139 mmol/L (136-145)
[2021-07-22 20:26] LABS: BE 6.9 mmol/L (-2 to +3); PO2 67.8 mmHg (75.0-100.0); pH 7.351 (7.340-7.450)
[2021-07-22 20:30] LABS: PCO2 62.9 mmHg (35.0-45.0)
[2021-07-23] VITALS (48 sets, daily range): BP systolic 102–186; BP diastolic 37–65
[2021-07-23 05:36] LABS: ABSOLUTE LYMPHOCYTES 0.8 thou/uL (0.8-5.3); ABSOLUTE MONOCYTES 1.2 thou/uL (0.0-1.2); BASOPHILS 0.1 %; EOSINOPHILS 0.1 %; HEMATOCRIT 27.7 % (37.0-47.0); HEMOGLOBIN 9.1 gm/dL (12.0-15.0); LYMPHOCYTES 3.5 %; MCH 28.2 pg (26.0-34.0); MCHC 32.7 g/dL (28.0-37.0); MCV 86.1 fL (80.0-100.0); MONOCYTES 5.1 %; MPV 9.1 fl. (7.2-11.1); NUCLEATED RBCS 0 /100WBC; PLATELET COUNT* 99 thou/uL (150-400); POLYS 91.2 %; RBC 3.22 mil/uL (4.20-5.00); RDW-CV 13.7 % (10.5-14.5)
[2021-07-23 06:07] LABS: ALBUMIN 3.3 g/dL (3.4-5.0); CALCIUM 10.1 mg/dL (8.5-10.1); CREATININE 0.9 mg/dL (0.6-1.3); MAGNESIUM 2.3 mg/dL (1.8-2.4); TOTAL BILIRUBIN 0.4 mg/dL (<0.1-1.0); TOTAL PROTEIN 5.4 g/dL (6.4-8.2)
[2021-07-23 06:09] LABS: POTASSIUM 4.5 mmol/L (3.5-5.1)
[2021-07-23 06:14] LABS: PHOSPHORUS* 3.3 mg/dL (2.5-4.9)
[2021-07-23 09:16] LABS: BE 12.7 mmol/L (-2 to +3); PCO2 44.7 mmHg (35.0-45.0); pH 7.532 (7.340-7.450)
[2021-07-23 09:22] LABS: PO2 56.9 mmHg (75.0-100.0)
[2021-07-24] VITALS (85 sets, daily range): BP systolic 68–191; BP diastolic 35–75
[2021-07-24 11:47] LABS: BE 9.1 mmol/L (-2 to +3); PO2 83.6 mmHg (75.0-100.0); pH 7.352 (7.340-7.450)
[2021-07-24 11:51] LABS: PCO2 67.2 mmHg (35.0-45.0)
[2021-07-25] VITALS (66 sets, daily range): BP systolic 100–155; BP diastolic 43–69
[2021-07-25 12:53] LABS: ABSOLUTE BASOPHILS 0.1 thou/uL (0.0-0.2); ABSOLUTE LYMPHOCYTES 0.5 thou/uL (0.8-5.3); ABSOLUTE MONOCYTES 0.9 thou/uL (0.0-1.2); ABSOLUTE NEUTROPHILS 22.9 thou/uL (1.6-8.1); BASOPHILS 0.2 %; HEMATOCRIT 28.2 % (37.0-47.0); HEMOGLOBIN 9.1 gm/dL (12.0-15.0); LYMPHOCYTES 2.1 %; MCH 28.5 pg (26.0-34.0); MCHC 32.4 g/dL (28.0-37.0); MCV 87.8 fL (80.0-100.0); MONOCYTES 3.6 %; MPV 8.6 fl. (7.2-11.1); NUCLEATED RBCS 0 /100WBC; PLATELET COUNT* 111 thou/uL (150-400); POLYS 94.1 %; RBC 3.21 mil/uL (4.20-5.00); RDW-CV 14.3 % (10.5-14.5); WBC 24.3 thou/uL (4.0-11.0)
[2021-07-25 13:14] LABS: ALBUMIN 2.7 g/dL (3.4-5.0); CALCIUM 10.3 mg/dL (8.5-10.1); CREATININE 0.8 mg/dL (0.6-1.3); MAGNESIUM 2.2 mg/dL (1.8-2.4); POTASSIUM 4.1 mmol/L (3.5-5.1); TOTAL BILIRUBIN 0.4 mg/dL (<0.1-1.0); TOTAL PROTEIN 5.2 g/dL (6.4-8.2)
[2021-07-25 14:27] LABS: BE 10.7 mmol/L (-2 to +3); PO2 76.1 mmHg (75.0-100.0); pH 7.458 (7.340-7.450)
[2021-07-26] VITALS (38 sets, daily range): BP systolic 80–167; BP diastolic 36–63
[2021-07-26 05:11] LABS: HEMATOCRIT 27.7 % (37.0-47.0); HEMOGLOBIN 9.1 gm/dL (12.0-15.0); MCH 28.6 pg (26.0-34.0); MCHC 32.8 g/dL (28.0-37.0); MCV 87.3 fL (80.0-100.0); NUCLEATED RBCS 0 /100WBC; PLATELET COUNT* 115 thou/uL (150-400); RBC 3.18 mil/uL (4.20-5.00); WBC 20.7 thou/uL (4.0-11.0)
[2021-07-26 05:26] LABS: ALBUMIN 2.5 g/dL (3.4-5.0); CALCIUM 10.2 mg/dL (8.5-10.1); CREATININE 0.7 mg/dL (0.6-1.3); MAGNESIUM 2.3 mg/dL (1.8-2.4); POTASSIUM 4.4 mmol/L (3.5-5.1); TOTAL BILIRUBIN 0.4 mg/dL (<0.1-1.0)
[2021-07-26 07:00] LABS: ABSOLUTE EOSINOPHILS 0.2 thou/uL (0.0-0.7); ABSOLUTE LYMPHOCYTES 0.8 thou/uL (0.8-5.3); ABSOLUTE MONOCYTES 0.6 thou/uL (0.0-1.2); PLATELET ESTIMATE DECREASED
[2021-07-26 07:01] LABS: ANISOCYTOSIS 1+; POIKILOCYTOSIS 1+
[2021-07-26 08:31] LABS: BE 11.8 mmol/L (-2 to +3); PCO2 44.1 mmHg (35.0-45.0); PO2 60.5 mmHg (75.0-100.0); pH 7.527 (7.340-7.450)
[2021-07-26 15:36] LABS: BE 9.2 mmol/L (-2 to +3); PO2 69.1 mmHg (75.0-100.0); pH 7.412 (7.340-7.450)
[2021-07-26 15:39] LABS: PCO2 56.6 mmHg (35.0-45.0)
[2021-07-26 18:37] LABS: BE 6.5 mmol/L (-2 to +3); PO2 96.4 mmHg (75.0-100.0)
[2021-07-26 18:45] LABS: PCO2 71.7 mmHg (35.0-45.0)
[2021-07-27] VITALS (46 sets, daily range): BP systolic 100–188; BP diastolic 37–62
[2021-07-27 04:36] LABS: ALBUMIN 3.5 g/dL (3.4-5.0); ALKALINE PHOSPHATASE 105 U/L (46-116); ANION GAP < 0 mmol/L (7-16); BUN 66 mg/dL (7-18); CALCIUM 10.3 mg/dL (8.5-10.1); CHLORIDE 101 mmol/L (98-107); CO2 39 mmol/L (21-32); CREATININE 0.9 mg/dL (0.6-1.3); GLUCOSE 121 mg/dL (70-99); MAGNESIUM 2.5 mg/dL (1.8-2.4); POTASSIUM 4.4 mmol/L (3.5-5.1); SGOT 108 U/L (15-37); SGPT 72 U/L (30-65); SODIUM 139 mmol/L (136-145); TOTAL BILIRUBIN 0.5 mg/dL (<0.1-1.0); TOTAL PROTEIN 5.7 g/dL (6.4-8.2)
[2021-07-27 04:43] LABS: ABSOLUTE LYMPHOCYTES 0.3 thou/uL (0.8-5.3); ABSOLUTE MONOCYTES 0.7 thou/uL (0.0-1.2); BASOPHILS 0.1 %; HEMATOCRIT 24.5 % (37.0-47.0); HEMOGLOBIN 7.8 gm/dL (12.0-15.0); LYMPHOCYTES 1.5 %; MCV 90.5 fL (80.0-100.0); MONOCYTES 3.2 %; MPV 9.2 fl. (7.2-11.1); NUCLEATED RBCS 0 /100WBC; PLATELET COUNT* 102 thou/uL (150-400); POLYS 95.2 %; RBC 2.71 mil/uL (4.20-5.00); RDW-CV 14.5 % (10.5-14.5); WBC 21.1 thou/uL (4.0-11.0)
[2021-07-27 08:47] LABS: PO2 87.7 mmHg (75.0-100.0); pH 7.302 (7.340-7.450)
[2021-07-27 08:52] LABS: PCO2 74.1 mmHg (35.0-45.0)
[2021-07-27 11:49] LABS: ABSOLUTE BASOPHILS 0.1 thou/uL (0.0-0.2); ABSOLUTE LYMPHOCYTES 0.3 thou/uL (0.8-5.3); ABSOLUTE MONOCYTES 0.6 thou/uL (0.0-1.2); ABSOLUTE NEUTROPHILS 18.7 thou/uL (1.6-8.1); BASOPHILS 0.3 %; HEMATOCRIT 23.5 % (37.0-47.0); HEMOGLOBIN 7.5 gm/dL (12.0-15.0); LYMPHOCYTES 1.4 %; MCH 28.6 pg (26.0-34.0); MCHC 31.8 g/dL (28.0-37.0); MCV 89.9 fL (80.0-100.0); MONOCYTES 3.1 %; MPV 8.8 fl. (7.2-11.1); NUCLEATED RBCS 0 /100WBC; PLATELET COUNT* 96 thou/uL (150-400); POLYS 95.2 %; RBC 2.61 mil/uL (4.20-5.00); RDW-CV 14.5 % (10.5-14.5); WBC 19.6 thou/uL (4.0-11.0)
[2021-07-27 12:01] LABS: APTT 25.3 Seconds (25.0-31.3); PROTIME 10.9 Seconds (9.20-11.50)
[2021-07-27 12:13] LABS: CALCIUM 10.2 mg/dL (8.5-10.1); CREATININE 0.9 mg/dL (0.6-1.3); MAGNESIUM 2.4 mg/dL (1.8-2.4); PHOSPHORUS* 5.5 mg/dL (2.5-4.9); POTASSIUM 4.4 mmol/L (3.5-5.1)
[2021-07-27 12:39] LABS: BE 10.2 mmol/L (-2 to +3); PO2 70.9 mmHg (75.0-100.0)
[2021-07-27 12:41] LABS: PCO2 71.2 mmHg (35.0-45.0)
[2021-07-27 18:24] LABS: ABSOLUTE BASOPHILS 0.1 thou/uL (0.0-0.2); ABSOLUTE LYMPHOCYTES 0.3 thou/uL (0.8-5.3); ABSOLUTE MONOCYTES 0.6 thou/uL (0.0-1.2); ABSOLUTE NEUTROPHILS 17.3 thou/uL (1.6-8.1); BASOPHILS 0.4 %; HEMATOCRIT 22.6 % (37.0-47.0); HEMOGLOBIN 7.2 gm/dL (12.0-15.0); LYMPHOCYTES 1.6 %; MCH 28.6 pg (26.0-34.0); MCV 89.2 fL (80.0-100.0); MONOCYTES 3.1 %; MPV 8.9 fl. (7.2-11.1); NUCLEATED RBCS 0 /100WBC; PLATELET COUNT* 98 thou/uL (150-400); POLYS 94.9 %; RBC 2.53 mil/uL (4.20-5.00); RDW-CV 14.4 % (10.5-14.5); WBC 18.3 thou/uL (4.0-11.0)
[2021-07-27 18:29] LABS: CALCIUM 10.1 mg/dL (8.5-10.1); CREATININE 0.8 mg/dL (0.6-1.3); POTASSIUM 4.2 mmol/L (3.5-5.1)
[2021-07-28] VITALS (69 sets, daily range): BP systolic 92–260; BP diastolic 40–78
[2021-07-28 04:50] LABS: ABSOLUTE LYMPHOCYTES 0.3 thou/uL (0.8-5.3); ABSOLUTE MONOCYTES 0.5 thou/uL (0.0-1.2); ABSOLUTE NEUTROPHILS 18.1 thou/uL (1.6-8.1); BASOPHILS 0.1 %; HEMATOCRIT 23.1 % (37.0-47.0); HEMOGLOBIN 7.4 gm/dL (12.0-15.0); LYMPHOCYTES 1.4 %; MCH 28.8 pg (26.0-34.0); MCHC 32.1 g/dL (28.0-37.0); MCV 89.7 fL (80.0-100.0); MONOCYTES 2.5 %; MPV 9.2 fl. (7.2-11.1); NUCLEATED RBCS 0 /100WBC; PLATELET COUNT* 104 thou/uL (150-400); RBC 2.58 mil/uL (4.20-5.00); WBC 18.8 thou/uL (4.0-11.0)
[2021-07-28 05:17] LABS: PHOSPHORUS* 4.1 mg/dL (2.5-4.9)
[2021-07-28 05:20] LABS: ALBUMIN 2.8 g/dL (3.4-5.0); CREATININE 0.8 mg/dL (0.6-1.3); MAGNESIUM 2.5 mg/dL (1.8-2.4); POTASSIUM 4.4 mmol/L (3.5-5.1); TOTAL BILIRUBIN 0.4 mg/dL (<0.1-1.0); TOTAL PROTEIN 5.4 g/dL (6.4-8.2)
[2021-07-28 09:23] LABS: BE 10.4 mmol/L (-2 to +3); pH 7.373 (7.340-7.450)
[2021-07-28 09:28] LABS: PCO2 65.2 mmHg (35.0-45.0)
[2021-07-29] VITALS (24 sets, daily range): BP systolic 89–168; BP diastolic 41–53
[2021-07-29 03:57] LABS: ABSOLUTE LYMPHOCYTES 0.6 thou/uL (0.8-5.3); ABSOLUTE MONOCYTES 0.4 thou/uL (0.0-1.2); ABSOLUTE NEUTROPHILS 13.3 thou/uL (1.6-8.1); BASOPHILS 0.1 %; HEMATOCRIT 22.9 % (37.0-47.0); HEMOGLOBIN 7.2 gm/dL (12.0-15.0); LYMPHOCYTES 4.2 %; MCH 28.9 pg (26.0-34.0); MCHC 31.5 g/dL (28.0-37.0); MCV 91.8 fL (80.0-100.0); MONOCYTES 2.7 %; MPV 9.1 fl. (7.2-11.1); NUCLEATED RBCS 0 /100WBC; PLATELET COUNT* 105 thou/uL (150-400); RBC 2.49 mil/uL (4.20-5.00); RDW-CV 14.9 % (10.5-14.5); WBC 14.3 thou/uL (4.0-11.0)
[2021-07-29 04:15] LABS: ALBUMIN 2.8 g/dL (3.4-5.0); CALCIUM 9.6 mg/dL (8.5-10.1); CREATININE 0.8 mg/dL (0.6-1.3); MAGNESIUM 2.7 mg/dL (1.8-2.4); TOTAL BILIRUBIN 0.3 mg/dL (<0.1-1.0); TOTAL PROTEIN 5.3 g/dL (6.4-8.2)
[2021-07-29 04:23] LABS: POTASSIUM 3.2 mmol/L (3.5-5.1)
[2021-07-29 08:57] LABS: BE 9.1 mmol/L (-2 to +3); pH 7.363 (7.340-7.450)
[2021-07-29 09:00] LABS: PCO2 64.7 mmHg (35.0-45.0); PO2 57.4 mmHg (75.0-100.0)
[2021-07-29 17:43] LABS: CALCIUM 9.9 mg/dL (8.5-10.1); CREATININE 0.7 mg/dL (0.6-1.3); MAGNESIUM 2.8 mg/dL (1.8-2.4)
[2021-07-29 17:44] LABS: POTASSIUM 4.8 mmol/L (3.5-5.1)
[2021-07-30] VITALS (55 sets, daily range): BP systolic 94–181; BP diastolic 38–52
[2021-07-30 07:51] LABS: HEMATOCRIT 23.4 % (37.0-47.0); HEMOGLOBIN 7.4 gm/dL (12.0-15.0); MCH 29.3 pg (26.0-34.0); MCHC 31.9 g/dL (28.0-37.0); MCV 91.9 fL (80.0-100.0); MPV 9.1 fl. (7.2-11.1); NUCLEATED RBCS 0 /100WBC; PLATELET COUNT* 117 thou/uL (150-400); RBC 2.54 mil/uL (4.20-5.00); RDW-CV 16.4 % (10.5-14.5); WBC 12.5 thou/uL (4.0-11.0)
[2021-07-30 07:53] LABS: CALCIUM 10.2 mg/dL (8.5-10.1); CREATININE 0.6 mg/dL (0.6-1.3); POTASSIUM 4.1 mmol/L (3.5-5.1)
[2021-07-30 08:32] LABS: ABSOLUTE LYMPHOCYTES 0.8 thou/uL (0.8-5.3); ABSOLUTE MONOCYTES 0.1 thou/uL (0.0-1.2); ABSOLUTE NEUTROPHILS 11.6 thou/uL (1.6-8.1); ANISOCYTOSIS 1+; OVALOCYTES 1+; PLATELET ESTIMATE DECREASED; POIKILOCYTOSIS 1+
[2021-07-30 12:07] LABS: BE 9.7 mmol/L (-2 to +3); PO2 65.9 mmHg (75.0-100.0); pH 7.354 (7.340-7.450)
[2021-07-30 12:13] LABS: PCO2 67.7 mmHg (35.0-45.0)
[2021-07-30 13:42] LABS: URINE BILIRUBIN NEGATIVE (Negative); URINE BLOOD 3+ (Negative); URINE CLARITY CLEAR; URINE COLOR YELLOW; URINE GLUCOSE-RANDOM NEGATIVE (Negative); URINE KETONES NEGATIVE (Negative); URINE LEUKOCYTES-REFLEX NEGATIVE (Negative); URINE NITRITE-REFLEX NEGATIVE (Negative); URINE PROTEIN TRACE (Negative); URINE UROBILINOGEN 0.2 E.U./dl (0.2-1.0)
[2021-07-30 13:56] LABS: BACTERIA-REFLEX 1-9 Few /HPF (None Seen); COARSE GRANULAR CASTS 0-3 Few /LPF (None Seen); CRYSTALS None Seen /LPF (None Seen); HYALINE CASTS 0-3 Few /LPF (None Seen); SQUAMOUS 4-10 Moderate /LPF (0-3); URINE RBC 3-10 Few /HPF (0-2); URINE WBC-REFLEX 6-15 Few /HPF (0-5)
[2021-07-30 13:57] LABS: MUCUS 4-6 Moderate strn/LPF (None Seen)
[2021-07-30 19:12] LABS: BE 4.2 mmol/L (-2 to +3); PO2 71.5 mmHg (75.0-100.0)
[2021-07-30 19:14] LABS: PCO2 81.6 mmHg (35.0-45.0); pH 7.244 (7.340-7.450)
[2021-07-31] VITALS (22 sets, daily range): BP systolic 101–228; BP diastolic 45–62
[2021-07-31 06:29] LABS: ABSOLUTE LYMPHOCYTES 0.5 thou/uL (0.8-5.3); ABSOLUTE MONOCYTES 0.4 thou/uL (0.0-1.2); ABSOLUTE NEUTROPHILS 12.6 thou/uL (1.6-8.1); EOSINOPHILS 0.1 %; HEMATOCRIT 23.2 % (37.0-47.0); HEMOGLOBIN 7.1 gm/dL (12.0-15.0); LYMPHOCYTES 3.8 %; MCH 28.9 pg (26.0-34.0); MCHC 30.7 g/dL (28.0-37.0); MCV 93.8 fL (80.0-100.0); MONOCYTES 2.9 %; MPV 8.6 fl. (7.2-11.1); NUCLEATED RBCS 0 /100WBC; PLATELET COUNT* 130 thou/uL (150-400); POLYS 93.2 %; RBC 2.47 mil/uL (4.20-5.00); RDW-CV 17.5 % (10.5-14.5); WBC 13.5 thou/uL (4.0-11.0)
[2021-07-31 06:47] LABS: PHOSPHORUS* 3.1 mg/dL (2.5-4.9)
[2021-07-31 06:49] LABS: ALBUMIN 2.2 g/dL (3.4-5.0); CALCIUM 9.8 mg/dL (8.5-10.1); CREATININE 0.7 mg/dL (0.6-1.3); MAGNESIUM 2.6 mg/dL (1.8-2.4); POTASSIUM 4.6 mmol/L (3.5-5.1); TOTAL BILIRUBIN 0.3 mg/dL (<0.1-1.0); TOTAL PROTEIN 5.5 g/dL (6.4-8.2)
[2021-07-31 07:56] LABS: BE 9.3 mmol/L (-2 to +3); PO2 61.7 mmHg (75.0-100.0)
[2021-07-31 07:59] LABS: PCO2 78.6 mmHg (35.0-45.0); pH 7.295 (7.340-7.450)
[2021-07-31 13:18] LABS: BE 8.6 mmol/L (-2 to +3); PO2 67.7 mmHg (75.0-100.0); pH 7.395 (7.340-7.450)
[2021-07-31 13:19] LABS: PCO2 57.8 mmHg (35.0-45.0)
[2021-07-31 16:12] LABS: BE 13.4 mmol/L (-2 to +3); pH 7.459 (7.340-7.450)
[2021-07-31 20:12] LABS: BE 11.6 mmol/L (-2 to +3); pH 7.369 (7.340-7.450)
[2021-07-31 20:18] LABS: PCO2 68.5 mmHg (35.0-45.0); PO2 42.9 mmHg (75.0-100.0)
[2021-08-01] VITALS (24 sets, daily range): BP systolic 114–176; BP diastolic 47–74
[2021-08-01 06:02] LABS: ABSOLUTE LYMPHOCYTES 0.3 thou/uL (0.8-5.3); ABSOLUTE MONOCYTES 0.2 thou/uL (0.0-1.2); ABSOLUTE NEUTROPHILS 11.7 thou/uL (1.6-8.1); BASOPHILS 0.1 %; EOSINOPHILS 0.1 %; HEMATOCRIT 23.8 % (37.0-47.0); HEMOGLOBIN 7.4 gm/dL (12.0-15.0); LYMPHOCYTES 2.4 %; MCH 28.9 pg (26.0-34.0); MCHC 31.1 g/dL (28.0-37.0); MCV 93.2 fL (80.0-100.0); MONOCYTES 1.8 %; MPV 8.5 fl. (7.2-11.1); NUCLEATED RBCS 0 /100WBC; PLATELET COUNT* 146 thou/uL (150-400); POLYS 95.6 %; RBC 2.56 mil/uL (4.20-5.00); RDW-CV 17.6 % (10.5-14.5); WBC 12.2 thou/uL (4.0-11.0)
[2021-08-01 06:29] LABS: ALBUMIN 3.2 g/dL (3.4-5.0); CALCIUM 10.7 mg/dL (8.5-10.1); CREATININE 0.6 mg/dL (0.6-1.3); MAGNESIUM 2.4 mg/dL (1.8-2.4); POTASSIUM 4.7 mmol/L (3.5-5.1); TOTAL BILIRUBIN 0.3 mg/dL (<0.1-1.0); TOTAL PROTEIN 6.5 g/dL (6.4-8.2)
[2021-08-01 08:21] LABS: BE 8.4 mmol/L (-2 to +3); PO2 77.8 mmHg (75.0-100.0)
[2021-08-01 08:26] LABS: PCO2 91.6 mmHg (35.0-45.0); pH 7.232 (7.340-7.450)
[2021-08-01 12:47] LABS: BE 11.3 mmol/L (-2 to +3); pH 7.342 (7.340-7.450)
[2021-08-01 12:49] LABS: PO2 38.6 mmHg (75.0-100.0)
[2021-08-01 18:26] LABS: ANION GAP < 0 mmol/L (7-16); BUN 61 mg/dL (7-18); CALCIUM 10.6 mg/dL (8.5-10.1); CHLORIDE 106 mmol/L (98-107); CO2 44 mmol/L (21-32); CREATININE 0.6 mg/dL (0.6-1.3); GLUCOSE 136 mg/dL (70-99); MAGNESIUM 2.2 mg/dL (1.8-2.4); POTASSIUM 3.9 mmol/L (3.5-5.1); SODIUM 145 mmol/L (136-145)
[2021-08-01 19:06] LABS: BE 2.8 mmol/L (-2 to +3); PO2 73.9 mmHg (75.0-100.0)
[2021-08-01 19:10] LABS: PCO2 63.1 mmHg (35.0-45.0); pH 7.295 (7.340-7.450)
[2021-08-02] VITALS (50 sets, daily range): BP systolic 118–213; BP diastolic 52–67
[2021-08-02 04:05] LABS: HEMATOCRIT 23.6 % (37.0-47.0); HEMOGLOBIN 7.6 gm/dL (12.0-15.0); MCH 29.4 pg (26.0-34.0); MCHC 32.1 g/dL (28.0-37.0); MCV 91.5 fL (80.0-100.0); MPV 8.1 fl. (7.2-11.1); NUCLEATED RBCS 0 /100WBC; PLATELET COUNT* 156 thou/uL (150-400); RBC 2.58 mil/uL (4.20-5.00); RDW-CV 17.2 % (10.5-14.5); WBC 13.6 thou/uL (4.0-11.0)
[2021-08-02 04:23] LABS: CREATININE 0.6 mg/dL (0.6-1.3); PHOSPHORUS* 2.8 mg/dL (2.5-4.9); POTASSIUM 4.6 mmol/L (3.5-5.1)
[2021-08-02 06:32] LABS: ABSOLUTE LYMPHOCYTES 0.8 thou/uL (0.8-5.3); ABSOLUTE NEUTROPHILS 12.8 thou/uL (1.6-8.1); ANISOCYTOSIS 2+; PLATELET ESTIMATE ADEQUATE
[2021-08-02 08:28] LABS: BE 12.9 mmol/L (-2 to +3); PO2 78.7 mmHg (75.0-100.0); pH 7.363 (7.340-7.450)
[2021-08-02 08:33] LABS: PCO2 72.2 mmHg (35.0-45.0)
[2021-08-02 15:00] LABS: BUN 58 mg/dL (7-18); CALCIUM 10.5 mg/dL (8.5-10.1); CHLORIDE 101 mmol/L (98-107); CREATININE 0.7 mg/dL (0.6-1.3); GLUCOSE 121 mg/dL (70-99); POTASSIUM 4.2 mmol/L (3.5-5.1)
[2021-08-02 15:03] LABS: SODIUM 136 mmol/L (136-145)
[2021-08-02 15:05] LABS: CO2 > 45 mmol/L (21-32)
[2021-08-02 15:39] LABS: BE 18.5 mmol/L (-2 to +3); PO2 70.5 mmHg (75.0-100.0)
[2021-08-02 15:46] LABS: PCO2 80.1 mmHg (35.0-45.0)
[2021-08-03] VITALS (14 sets, daily range): BP systolic 107–157; BP diastolic 45–53
[2021-08-03 05:37] LABS: ABSOLUTE LYMPHOCYTES 0.4 thou/uL (0.8-5.3); ABSOLUTE MONOCYTES 0.4 thou/uL (0.0-1.2); ABSOLUTE NEUTROPHILS 12.2 thou/uL (1.6-8.1); BASOPHILS 0.3 %; HEMATOCRIT 24.5 % (37.0-47.0); HEMOGLOBIN 7.7 gm/dL (12.0-15.0); LYMPHOCYTES 3.4 %; MCH 28.6 pg (26.0-34.0); MCHC 31.3 g/dL (28.0-37.0); MCV 91.5 fL (80.0-100.0); MONOCYTES 2.8 %; MPV 8.5 fl. (7.2-11.1); NUCLEATED RBCS 1 /100WBC; PLATELET COUNT* 171 thou/uL (150-400); POLYS 93.5 %; RBC 2.68 mil/uL (4.20-5.00); RDW-CV 17.3 % (10.5-14.5)
[2021-08-03 05:53] LABS: ALBUMIN 2.4 g/dL (3.4-5.0); CALCIUM 9.8 mg/dL (8.5-10.1); CREATININE 0.8 mg/dL (0.6-1.3); POTASSIUM 4.4 mmol/L (3.5-5.1); TOTAL BILIRUBIN 0.3 mg/dL (<0.1-1.0); TOTAL PROTEIN 5.8 g/dL (6.4-8.2)
[2021-08-03 08:25] LABS: PO2 78.6 mmHg (75.0-100.0); pH 7.403 (7.340-7.450)
[2021-08-03 08:27] LABS: PCO2 72.6 mmHg (35.0-45.0)
[2021-08-03 17:04] LABS: BE 21.5 mmol/L (-2 to +3)
[2021-08-03 17:08] LABS: PCO2 75.3 mmHg (35.0-45.0); PO2 58.7 mmHg (75.0-100.0)
[2021-08-03 17:23] LABS: BUN 69 mg/dL (7-18); CALCIUM 10.5 mg/dL (8.5-10.1); CHLORIDE 93 mmol/L (98-107); CREATININE 0.7 mg/dL (0.6-1.3); GLUCOSE 131 mg/dL (70-99); SODIUM 135 mmol/L (136-145)
[2021-08-03 17:25] LABS: POTASSIUM 2.9 mmol/L (3.5-5.1)
[2021-08-03 17:30] LABS: ANION GAP < 0 mmol/L (7-16)
[2021-08-03 17:31] LABS: CO2 45 mmol/L (21-32)
[2021-08-04] VITALS (39 sets, daily range): BP systolic 100–143; BP diastolic 39–51
[2021-08-04 05:40] LABS: ABSOLUTE LYMPHOCYTES 0.7 thou/uL (0.8-5.3); ABSOLUTE MONOCYTES 0.3 thou/uL (0.0-1.2); ABSOLUTE NEUTROPHILS 13.6 thou/uL (1.6-8.1); BASOPHILS 0.1 %; EOSINOPHILS 0.1 %; HEMATOCRIT 25.2 % (37.0-47.0); HEMOGLOBIN 8.2 gm/dL (12.0-15.0); LYMPHOCYTES 4.5 %; MCH 29.2 pg (26.0-34.0); MCHC 32.4 g/dL (28.0-37.0); MCV 90.1 fL (80.0-100.0); MONOCYTES 2.1 %; MPV 8.7 fl. (7.2-11.1); NUCLEATED RBCS 1 /100WBC; PLATELET COUNT* 192 thou/uL (150-400); POLYS 93.2 %; RDW-CV 17.3 % (10.5-14.5); WBC 14.6 thou/uL (4.0-11.0)
[2021-08-04 05:58] LABS: ALBUMIN 2.8 g/dL (3.4-5.0); ALKALINE PHOSPHATASE 142 U/L (46-116); BUN 73 mg/dL (7-18); CALCIUM 10.2 mg/dL (8.5-10.1); CHLORIDE 93 mmol/L (98-107); CREATININE 0.7 mg/dL (0.6-1.3); GLUCOSE 177 mg/dL (70-99); SGOT 115 U/L (15-37); SGPT 142 U/L (30-65); SODIUM 139 mmol/L (136-145); TOTAL BILIRUBIN 0.4 mg/dL (<0.1-1.0)
[2021-08-04 06:08] LABS: PREALBUMIN 19.3 mg/dL (18.0-35.7)
[2021-08-04 06:21] LABS: CO2 > 45 mmol/L (21-32)
[2021-08-04 11:28] LABS: BE 25.2 mmol/L (-2 to +3); pH 7.504 (7.340-7.450)
[2021-08-04 11:30] LABS: PCO2 66.9 mmHg (35.0-45.0); PO2 59.2 mmHg (75.0-100.0)
[2021-08-04 17:13] LABS: BE 25.2 mmol/L (-2 to +3); pH 7.518 (7.340-7.450)
[2021-08-04 17:17] LABS: PO2 53.7 mmHg (75.0-100.0)
[2021-08-04 17:36] LABS: BUN 77 mg/dL (7-18); CHLORIDE 90 mmol/L (98-107); CREATININE 0.8 mg/dL (0.6-1.3); GLUCOSE 113 mg/dL (70-99); MAGNESIUM 2.3 mg/dL (1.8-2.4); SODIUM 136 mmol/L (136-145)
[2021-08-04 17:38] LABS: CO2 > 45 mmol/L (21-32)
[2021-08-05] VITALS (42 sets, daily range): BP systolic 92–209; BP diastolic 40–61
[2021-08-05 04:38] LABS: ABSOLUTE BASOPHILS 0.1 thou/uL (0.0-0.2); ABSOLUTE LYMPHOCYTES 0.8 thou/uL (0.8-5.3); ABSOLUTE MONOCYTES 0.4 thou/uL (0.0-1.2); ABSOLUTE NEUTROPHILS 14.3 thou/uL (1.6-8.1); BASOPHILS 0.9 %; HEMATOCRIT 23.5 % (37.0-47.0); HEMOGLOBIN 7.4 gm/dL (12.0-15.0); LYMPHOCYTES 4.9 %; MCH 28.9 pg (26.0-34.0); MCHC 31.6 g/dL (28.0-37.0); MCV 91.7 fL (80.0-100.0); MONOCYTES 2.5 %; MPV 8.9 fl. (7.2-11.1); NUCLEATED RBCS 0 /100WBC; PLATELET COUNT* 194 thou/uL (150-400); POLYS 91.7 %; RBC 2.56 mil/uL (4.20-5.00); RDW-CV 16.7 % (10.5-14.5); WBC 15.6 thou/uL (4.0-11.0)
[2021-08-05 04:53] LABS: PREALBUMIN 22.3 mg/dL (18.0-35.7)
[2021-08-05 05:00] LABS: ALBUMIN 3.6 g/dL (3.4-5.0); CALCIUM 10.2 mg/dL (8.5-10.1); CREATININE 0.8 mg/dL (0.6-1.3); MAGNESIUM 2.6 mg/dL (1.8-2.4); POTASSIUM 4.1 mmol/L (3.5-5.1); TOTAL BILIRUBIN 0.5 mg/dL (<0.1-1.0); TOTAL PROTEIN 6.6 g/dL (6.4-8.2)
[2021-08-05 07:44] LABS: pH 7.502 (7.340-7.450)
[2021-08-05 07:46] LABS: PCO2 65.2 mmHg (35.0-45.0); PO2 57.1 mmHg (75.0-100.0)
[2021-08-06] VITALS (42 sets, daily range): BP systolic 93–189; BP diastolic 35–61
[2021-08-06 06:39] LABS: HEMATOCRIT 25.1 % (37.0-47.0); MCH 28.8 pg (26.0-34.0); MCHC 31.8 g/dL (28.0-37.0); MCV 90.7 fL (80.0-100.0); MPV 9.3 fl. (7.2-11.1); NUCLEATED RBCS 1 /100WBC; PLATELET COUNT* 233 thou/uL (150-400); RBC 2.77 mil/uL (4.20-5.00); RDW-CV 18.3 % (10.5-14.5); WBC 17.8 thou/uL (4.0-11.0)
[2021-08-06 06:50] LABS: ALBUMIN 2.8 g/dL (3.4-5.0); CALCIUM 10.2 mg/dL (8.5-10.1); CREATININE 0.8 mg/dL (0.6-1.3); MAGNESIUM 2.7 mg/dL (1.8-2.4); POTASSIUM 4.2 mmol/L (3.5-5.1); TOTAL BILIRUBIN 0.5 mg/dL (<0.1-1.0); TOTAL PROTEIN 5.9 g/dL (6.4-8.2)
[2021-08-06 07:33] LABS: ABSOLUTE EOSINOPHILS 0.2 thou/uL (0.0-0.7); ABSOLUTE LYMPHOCYTES 1.2 thou/uL (0.8-5.3); ABSOLUTE MONOCYTES 0.2 thou/uL (0.0-1.2); ABSOLUTE NEUTROPHILS 16.2 thou/uL (1.6-8.1); METAMYELOCYTES 4 %; PLATELET ESTIMATE ADEQUATE
[2021-08-06 07:34] LABS: ANISOCYTOSIS 1+; HYPOCHROMASIA 1+; LARGE PLATELETS FEW
[2021-08-06 07:35] LABS: MACROCYTES 1+; POLYCHROMASIA 1+
[2021-08-07] VITALS (23 sets, daily range): BP systolic 99–205; BP diastolic 40–71
[2021-08-07 05:51] LABS: HEMOGLOBIN 8.5 gm/dL (12.0-15.0); MPV 8.9 fl. (7.2-11.1)
[2021-08-07 05:53] LABS: ABSOLUTE BASOPHILS 0.1 thou/uL (0.0-0.2); ABSOLUTE LYMPHOCYTES 1.4 thou/uL (0.8-5.3); ABSOLUTE MONOCYTES 0.6 thou/uL (0.0-1.2); ABSOLUTE NEUTROPHILS 15.2 thou/uL (1.6-8.1); BASOPHILS 0.7 %; EOSINOPHILS 0.1 %; HEMATOCRIT 26.9 % (37.0-47.0); LYMPHOCYTES 7.9 %; MCH 28.6 pg (26.0-34.0); MCHC 31.6 g/dL (28.0-37.0); MCV 90.5 fL (80.0-100.0); MONOCYTES 3.3 %; NUCLEATED RBCS 1 /100WBC; PLATELET COUNT* 259 thou/uL (150-400); RBC 2.97 mil/uL (4.20-5.00); RDW-CV 18.3 % (10.5-14.5); WBC 17.3 thou/uL (4.0-11.0)
[2021-08-07 06:09] LABS: ALBUMIN 2.7 g/dL (3.4-5.0); CALCIUM 10.2 mg/dL (8.5-10.1); CREATININE 0.6 mg/dL (0.6-1.3); MAGNESIUM 2.6 mg/dL (1.8-2.4); PHOSPHORUS* 2.9 mg/dL (2.5-4.9); POTASSIUM 4.2 mmol/L (3.5-5.1); TOTAL BILIRUBIN 0.4 mg/dL (<0.1-1.0); TOTAL PROTEIN 6.2 g/dL (6.4-8.2)
[2021-08-08] VITALS (33 sets, daily range): BP systolic 93–159; BP diastolic 41–71
[2021-08-08 06:39] LABS: ABSOLUTE BASOPHILS 0.1 thou/uL (0.0-0.2); ABSOLUTE LYMPHOCYTES 1.5 thou/uL (0.8-5.3); ABSOLUTE MONOCYTES 0.6 thou/uL (0.0-1.2); ABSOLUTE NEUTROPHILS 15.3 thou/uL (1.6-8.1); BASOPHILS 0.3 %; EOSINOPHILS 0.2 %; HEMOGLOBIN 8.3 gm/dL (12.0-15.0); LYMPHOCYTES 8.4 %; MCH 29.1 pg (26.0-34.0); MCHC 31.8 g/dL (28.0-37.0); MCV 91.8 fL (80.0-100.0); MONOCYTES 3.2 %; MPV 8.8 fl. (7.2-11.1); NUCLEATED RBCS 1 /100WBC; PLATELET COUNT* 247 thou/uL (150-400); POLYS 87.9 %; RBC 2.84 mil/uL (4.20-5.00); RDW-CV 19.7 % (10.5-14.5); WBC 17.5 thou/uL (4.0-11.0)
[2021-08-08 07:59] LABS: ALBUMIN 2.3 g/dL (3.4-5.0); CALCIUM 9.7 mg/dL (8.5-10.1); CREATININE 0.5 mg/dL (0.6-1.3); MAGNESIUM 2.3 mg/dL (1.8-2.4); PHOSPHORUS* 2.6 mg/dL (2.5-4.9); POTASSIUM 4.2 mmol/L (3.5-5.1); TOTAL BILIRUBIN 0.4 mg/dL (<0.1-1.0)
[2021-08-08 11:23] LABS: BE 18.7 mmol/L (-2 to +3)
[2021-08-08 11:26] LABS: PO2 54.6 mmHg (75.0-100.0)
[2021-08-09] VITALS (59 sets, daily range): BP systolic 98–141; BP diastolic 37–51
[2021-08-09 04:54] LABS: HEMATOCRIT 25.4 % (37.0-47.0); MCH 29.5 pg (26.0-34.0); MCHC 31.4 g/dL (28.0-37.0); MPV 9.1 fl. (7.2-11.1); NUCLEATED RBCS 2 /100WBC; PLATELET COUNT* 282 thou/uL (150-400); RDW-CV 20.2 % (10.5-14.5); WBC 22.7 thou/uL (4.0-11.0)
[2021-08-09 05:15] LABS: ALBUMIN 2.7 g/dL (3.4-5.0); CALCIUM 9.6 mg/dL (8.5-10.1); CREATININE 0.6 mg/dL (0.6-1.3); MAGNESIUM 2.4 mg/dL (1.8-2.4); POTASSIUM 5.1 mmol/L (3.5-5.1); TOTAL BILIRUBIN 0.4 mg/dL (<0.1-1.0); TOTAL PROTEIN 6.1 g/dL (6.4-8.2)
[2021-08-09 07:04] LABS: ABSOLUTE LYMPHOCYTES 1.4 thou/uL (0.8-5.3); ABSOLUTE NEUTROPHILS 21.3 thou/uL (1.6-8.1); ANISOCYTOSIS 2+; METAMYELOCYTES 5 %; PLATELET ESTIMATE ADEQUATE; POLYCHROMASIA 2+
[2021-08-09 08:07] LABS: BE 16.9 mmol/L (-2 to +3); PO2 64.8 mmHg (75.0-100.0); pH 7.374 (7.340-7.450)
[2021-08-09 08:08] LABS: PCO2 78.5 mmHg (35.0-45.0)
[2021-08-09 15:28] LABS: CALCIUM 9.2 mg/dL (8.5-10.1); CREATININE 0.5 mg/dL (0.6-1.3)
[2021-08-09 15:36] LABS: POTASSIUM 3.7 mmol/L (3.5-5.1)
[2021-08-10] VITALS (24 sets, daily range): BP systolic 104–150; BP diastolic 42–53
[2021-08-10 05:06] LABS: ABSOLUTE EOSINOPHILS 0.1 thou/uL (0.0-0.7); ABSOLUTE LYMPHOCYTES 0.8 thou/uL (0.8-5.3); ABSOLUTE MONOCYTES 0.6 thou/uL (0.0-1.2); ABSOLUTE NEUTROPHILS 21.7 thou/uL (1.6-8.1); BASOPHILS 0.1 %; EOSINOPHILS 0.6 %; HEMATOCRIT 23.7 % (37.0-47.0); HEMOGLOBIN 7.2 gm/dL (12.0-15.0); LYMPHOCYTES 3.4 %; MCH 29.3 pg (26.0-34.0); MCHC 30.3 g/dL (28.0-37.0); MCV 96.7 fL (80.0-100.0); MONOCYTES 2.7 %; MPV 9.1 fl. (7.2-11.1); NUCLEATED RBCS 1 /100WBC; PLATELET COUNT* 264 thou/uL (150-400); POLYS 93.2 %; RBC 2.45 mil/uL (4.20-5.00); RDW-CV 20.5 % (10.5-14.5); WBC 23.3 thou/uL (4.0-11.0)
[2021-08-10 09:55] LABS: BE 6.9 mmol/L (-2 to +3); PO2 75.8 mmHg (75.0-100.0)
[2021-08-10 10:00] LABS: PCO2 72.4 mmHg (35.0-45.0); pH 7.296 (7.340-7.450)
[2021-08-10 11:54] LABS: ALBUMIN 3.2 g/dL (3.4-5.0); CALCIUM 9.2 mg/dL (8.5-10.1); CREATININE 0.8 mg/dL (0.6-1.3); MAGNESIUM 2.5 mg/dL (1.8-2.4); POTASSIUM 4.3 mmol/L (3.5-5.1); TOTAL BILIRUBIN 0.4 mg/dL (<0.1-1.0); TOTAL PROTEIN 6.4 g/dL (6.4-8.2)
[2021-08-10 13:05] LABS: BE 11.7 mmol/L (-2 to +3); PO2 113.3 mmHg (75.0-100.0); pH 7.375 (7.340-7.450)
[2021-08-10 13:07] LABS: PCO2 67.1 mmHg (35.0-45.0)
[2021-08-11] VITALS (25 sets, daily range): BP systolic 111–162; BP diastolic 44–58
[2021-08-11 03:27] LABS: HEMATOCRIT 21.7 % (37.0-47.0); RBC 2.23 mil/uL (4.20-5.00)
[2021-08-11 03:29] LABS: ABSOLUTE LYMPHOCYTES 0.8 thou/uL (0.8-5.3); ABSOLUTE MONOCYTES 0.7 thou/uL (0.0-1.2); ABSOLUTE NEUTROPHILS 24.1 thou/uL (1.6-8.1); LYMPHOCYTES 3.1 %; MCH 28.9 pg (26.0-34.0); MCHC 29.7 g/dL (28.0-37.0); MCV 97.3 fL (80.0-100.0); MONOCYTES 2.9 %; MPV 8.8 fl. (7.2-11.1); NUCLEATED RBCS 0 /100WBC; PLATELET COUNT* 249 thou/uL (150-400); RDW-CV 20.4 % (10.5-14.5); WBC 25.6 thou/uL (4.0-11.0)
[2021-08-11 03:39] LABS: ALBUMIN 3.4 g/dL (3.4-5.0); CALCIUM 9.4 mg/dL (8.5-10.1); CREATININE 0.8 mg/dL (0.6-1.3); MAGNESIUM 2.5 mg/dL (1.8-2.4); POTASSIUM 3.7 mmol/L (3.5-5.1); TOTAL BILIRUBIN 0.4 mg/dL (<0.1-1.0); TOTAL PROTEIN 6.4 g/dL (6.4-8.2)
[2021-08-11 05:02] LABS: HEMOGLOBIN 6.4 gm/dL (12.0-15.0)
[2021-08-11 09:19] LABS: BE 9.7 mmol/L (-2 to +3); PO2 103.6 mmHg (75.0-100.0)
[2021-08-11 09:21] LABS: PCO2 78.5 mmHg (35.0-45.0); pH 7.296 (7.340-7.450)
[2021-08-11 12:56] LABS: BE 6.7 mmol/L (-2 to +3)
[2021-08-11 12:58] LABS: PCO2 76.3 mmHg (35.0-45.0); pH 7.276 (7.340-7.450)
[2021-08-11 13:56] LABS: ABSOLUTE LYMPHOCYTES 0.7 thou/uL (0.8-5.3); ABSOLUTE MONOCYTES 0.6 thou/uL (0.0-1.2); ABSOLUTE NEUTROPHILS 21.6 thou/uL (1.6-8.1); BASOPHILS 0.2 %; HEMATOCRIT 25.4 % (37.0-47.0); HEMOGLOBIN 7.7 gm/dL (12.0-15.0); MCHC 30.3 g/dL (28.0-37.0); MCV 95.9 fL (80.0-100.0); MONOCYTES 2.6 %; MPV 8.7 fl. (7.2-11.1); NUCLEATED RBCS 0 /100WBC; PLATELET COUNT* 235 thou/uL (150-400); POLYS 94.2 %; RBC 2.65 mil/uL (4.20-5.00); RDW-CV 19.7 % (10.5-14.5); WBC 22.9 thou/uL (4.0-11.0)
[2021-08-11 14:01] LABS: CALCIUM 9.6 mg/dL (8.5-10.1); CREATININE 0.9 mg/dL (0.6-1.3); MAGNESIUM 2.5 mg/dL (1.8-2.4); POTASSIUM 3.9 mmol/L (3.5-5.1)
[2021-08-11 18:26] LABS: BE 5.3 mmol/L (-2 to +3); pH 7.329 (7.340-7.450)
[2021-08-11 18:29] LABS: PCO2 62.8 mmHg (35.0-45.0)
[2021-08-12] VITALS (48 sets, daily range): BP systolic 97–145; BP diastolic 42–59
[2021-08-12 05:54] LABS: ABSOLUTE LYMPHOCYTES 0.8 thou/uL (0.8-5.3); ABSOLUTE MONOCYTES 1.2 thou/uL (0.0-1.2); BASOPHILS 0.1 %; HEMATOCRIT 25.6 % (37.0-47.0); HEMOGLOBIN 7.9 gm/dL (12.0-15.0); MCH 29.5 pg (26.0-34.0); MCHC 30.7 g/dL (28.0-37.0); MCV 96.2 fL (80.0-100.0); MONOCYTES 5.5 %; MPV 8.9 fl. (7.2-11.1); NUCLEATED RBCS 1 /100WBC; PLATELET COUNT* 272 thou/uL (150-400); POLYS 90.4 %; RBC 2.66 mil/uL (4.20-5.00); RDW-CV 20.1 % (10.5-14.5)
[2021-08-12 06:20] LABS: ALBUMIN 3.3 g/dL (3.4-5.0); CALCIUM 9.7 mg/dL (8.5-10.1); CREATININE 0.8 mg/dL (0.6-1.3); MAGNESIUM 2.6 mg/dL (1.8-2.4); POTASSIUM 3.9 mmol/L (3.5-5.1); TOTAL BILIRUBIN 0.3 mg/dL (<0.1-1.0); TOTAL PROTEIN 6.3 g/dL (6.4-8.2)
[2021-08-12 07:24] LABS: BE 8.7 mmol/L (-2 to +3); PO2 74.7 mmHg (75.0-100.0); pH 7.301 (7.340-7.450)
[2021-08-12 07:28] LABS: PCO2 76.3 mmHg (35.0-45.0)
[2021-08-13] VITALS (42 sets, daily range): BP systolic 77–152; BP diastolic 30–84
[2021-08-13 04:25] LABS: MPV 8.1 fl. (7.2-11.1)
[2021-08-13 04:28] LABS: ABSOLUTE EOSINOPHILS 0.1 thou/uL (0.0-0.7); ABSOLUTE LYMPHOCYTES 1.5 thou/uL (0.8-5.3); ABSOLUTE NEUTROPHILS 21.9 thou/uL (1.6-8.1); BASOPHILS 0.2 %; EOSINOPHILS 0.4 %; HEMATOCRIT 29.1 % (37.0-47.0); HEMOGLOBIN 8.9 gm/dL (12.0-15.0); LYMPHOCYTES 6.2 %; MCH 29.7 pg (26.0-34.0); MCHC 30.6 g/dL (28.0-37.0); MCV 96.9 fL (80.0-100.0); MONOCYTES 4.1 %; NUCLEATED RBCS 0 /100WBC; PLATELET COUNT* 310 thou/uL (150-400); POLYS 89.1 %; WBC 24.6 thou/uL (4.0-11.0)
[2021-08-13 04:56] LABS: PHOSPHORUS* 3.7 mg/dL (2.5-4.9)
[2021-08-13 05:32] LABS: ALBUMIN 2.7 g/dL (3.4-5.0); CALCIUM 9.4 mg/dL (8.5-10.1); CREATININE 0.8 mg/dL (0.6-1.3); POTASSIUM 3.5 mmol/L (3.5-5.1); TOTAL BILIRUBIN 0.3 mg/dL (<0.1-1.0)
[2021-08-13 07:41] LABS: BE 2.3 mmol/L (-2 to +3)
[2021-08-13 07:43] LABS: PCO2 88.4 mmHg (35.0-45.0); PO2 52.4 mmHg (75.0-100.0); pH 7.184 (7.340-7.450)
[2021-08-13 08:19] LABS: MAGNESIUM 2.5 mg/dL (1.8-2.4)
[2021-08-13 12:42] LABS: BE 1.2 mmol/L (-2 to +3)
[2021-08-13 12:45] LABS: PCO2 59.9 mmHg (35.0-45.0); PO2 43.4 mmHg (75.0-100.0); pH 7.295 (7.340-7.450)
[2021-08-14] VITALS: BP 88/55
[2021-08-14 01:00] VITALS: BP 75/51
[2021-08-14 02:00] VITALS: BP 69/46
[2021-08-14 03:00] VITALS: BP 61/42
[2021-08-14 04:00] VITALS: BP 48/35
== END 2021-08-14 04:07 | DRG 870 ==
LOC: M.ERS 12:17 → M.ORTHSURG 13:51 → M.TBA-ER 13:51 → M.ORTHSURG 18:40 → M.ICU 07-13 04:39
PROVIDERS: Family Medicine; Internal Medicine; Internal Medicine Critical Care Medicine; Pediatrics; Physician Assistant; Student in an Organized Health Care Education/Training Program; Surgery; ADMIT Internal Medicine; ATTEND Internal Medicine
PROC: 0BH17EZ Insertion of Endotracheal Airway into Trachea, Via Natural or Artificial Opening (ICD-10-PCS; principal; 2021-07-08)
PROC: XW033E5 Introduction of Remdesivir Anti-infective into Peripheral Vein, Percutaneous Approach, New Technology Group 5 (ICD-10-PCS; principal; 2021-07-08)
PROC: 5A1955Z Respiratory Ventilation, Greater than 96 Consecutive Hours (ICD-10-PCS; principal; 2021-07-08)
PROC: 0W9900Z Drainage of Right Pleural Cavity with Drainage Device, Open Approach (ICD-10-PCS; principal; 2021-07-08)
PROC: 30233N1 Transfusion of Nonautologous Red Blood Cells into Peripheral Vein, Percutaneous Approach (ICD-10-PCS; principal; 2021-07-08)
DX: A41.89 Other specified sepsis (principal); U07.1 COVID-19; J96.01 Acute respiratory failure with hypoxia; J12.82 Pneumonia due to coronavirus disease 2019; I26.99 Other pulmonary embolism without acute cor pulmonale; D65 Disseminated intravascular coagulation [defibrination syndrome]; E87.1 Hypo-osmolality and hyponatremia; B49 Unspecified mycosis; J93.9 Pneumothorax, unspecified; I95.9 Hypotension, unspecified; E09.69 Drug or chemical induced diabetes mellitus with other specified complication; T38.0X5A Adverse effect of glucocorticoids and synthetic analogues, initial encounter; Y92.89 Other specified places as the place of occurrence of the external cause; Z88.8 Allergy status to other drugs, medicaments and biological substances; I49.01 Ventricular fibrillation; I46.9 Cardiac arrest, cause unspecified; Z66 Do not resuscitate